=== PATIENT | male | born 1985 | race Caucasian/White ===

== ENCOUNTER 2021-10-23 08:00 | Outpatient (CLI) | payer OTHER ==
--- NOTE | 2021-10-24 10:19 | XRAY Report ---
PROCEDURE: Tib/Fib RT INDICATIONS: R LEG PX TECHNIQUE: 2 views of the tibia and fibula were acquired. COMPARISON: None FINDINGS: Bones: No fractures or dislocations. No suspicious bony lesions. Soft tissues: No suspicious soft tissue calcifications or masses. IMPRESSION: No fracture. No osseous lesion. If there are persistent symptoms or continued clinical concern for pa thology, then repeat plain film radiographs (7-10 days) or advanced imaging (CT, MR, bone scan) shoul d be considered for further evaluation. Reviewed by: Kasia Nolasco MD, PhD on 10/24/2021 10:18 AM [facility] Approved by: Kasia Nolasco MD, PhD on 10/24/2021 10:18 AM [facility] Station ID: [id number]
== END 2021-10-23 23:59 ==
LOC: DI.N 08:00
PROVIDERS: ATTEND Family Medicine
DX: S80.11XA Contusion of right lower leg, initial encounter (principal)

== ENCOUNTER 2023-04-13 15:45 | Outpatient (CLI) | payer OTHER | END 2023-04-13 16:00 | disposition home or self-care (01) | LOC: LAB.N 15:45 | PROVIDERS: ATTEND Nurse Practitioner | DX: R07.0 Pain in throat (principal) | CPT/HCPCS: 87070 ==